=== PATIENT | female | born 1960 | race Caucasian/White ===

== ENCOUNTER 2017-04-17 11:35 | Day surgery (SDC) | payer MEDICAID, OTHER ==
[~2017-04-17] VITALS: Ht 157.5 cm; Wt 74.8 kg
[2017-04-17 12:16] VITALS: Ht 157.5 cm; Wt 74.8 kg
[2017-04-17] MEDS ORDERED: OMEP40CA6 PO (12:30)
[2017-04-17] MEDS ORDERED: ACET325T33 PO (12:30)
[2017-04-17] MEDS ORDERED: CALC200T3 PO (12:30)
[2017-04-17] MEDS ORDERED: IBUP400T22 PO (12:30)
[2017-04-17] MEDS ORDERED: NAPR220C PO (12:30)
[2017-04-17] MEDS ORDERED: VALE100C PO (12:30)
[2017-04-17 12:47] VITALS: BP 119/71; PULSE 81; RESP 16
[2017-04-17 15:43] VITALS: BP 122/79; RESP 20
--- NOTE | 2017-04-17 18:14 | GILP ---
DATE OF PROCEDURE: 04/17/2017 PROCEDURE: Esophagogastroduodenoscopy with polypectomy and biopsies. BRIEF HISTORY AND INDICATIONS: The patient is being evaluated for dyspepsia, abdominal pain. PREMEDICATION: Monitored anesthesia care by anesthesiologist. SURGEON: Lauri Pereira MD. INSTRUMENT USED: Olympus panendoscope TECHNIQUE: After informed consent, with the patient/relatives understanding the procedure, its indic ations, potential risks and complications, including but not limited to: allergic reaction, bleeding , perforation or infection, and after all pertinent questions were answered to the patients satisfac tion, the patient/relatives signed witnessed informed consent. Following this, premedication was ad ministered slowly IV push under careful cardiovascular and respiratory monitoring with pulse oximetr y, automatic blood pressure and senior lead software engineer. Once the sedative effect was achieved the patient was place in the left lateral decubitus, the panendoscope was introduced and advanced under visual contr ol. Careful examination of the upper gastrointestinal tract, both on insertion as well as withdrawal of the instrument disclosed the following findings: ESOPHAGUS: The mucosa of the entire esophagus appears within normal limits. There is no evidence of esophagitis, varices, neoplasm or stricture. No hiatal hernia identified. STOMACH: Upon entrance to the stomach air was insufflated, the gastric banks distended normally. T here is erythema and edema of the mucosa of a moderate degree. Biopsies were obtained to rule out H . pylori infection. There is also a 2 cm broad-based polyp/mass in the antrum of the stomach with b enign endoscopic appearance. The polyp was removed in piecemeal fashion, approximately 50% and retr ieved. No additional polypectomy was performed as the area of the resection was relatively broad. The instrument was withdrawn reexamining the mucosa in detail. No additional abnormalities are note d. IMPRESSION: 1. A 2 cm broad-based polyp/mass, benign endoscopic appearance, post-piecemeal resection of approxi mately 50%. 2. Gastritis, rule out Helicobacter pylori infection, biopsies obtained. PLAN: PPI therapy. Pathology will be reviewed as soon as available. Further recommendation will d epend on the patient's clinical course as well as review of biopsies. The remainder of the polyp sh ould be removed in the next 3 to 6 months pending review of pathology. Dictated By: LAURI PEREIRA MS/OLY Conf#: [id number] DID#: [id number] CC: LAURI PEREIRA;*EndCC*
== END 2017-04-17 17:54 | disposition home or self-care (01) ==
LOC: GIL 11:35
PROVIDERS: ATTEND Internal Medicine Gastroenterology
DX: K29.50 Unspecified chronic gastritis without bleeding (principal)
CPT/HCPCS: 43239; 88305; 88312; Z7610